=== PATIENT | female | born 1965 | race Caucasian/White ===

== ENCOUNTER → 2020-01-04 10:19 | Outpatient (BNVA) | payer MEDICARE, SELFPAY | PROVIDERS: PCP Family Medicine; Visit Provider Internal Medicine Rheumatology | DX: M45.9 Ankylosing spondylitis of unspecified sites in spine (principal); M19.90 Unspecified osteoarthritis, unspecified site; M54.31 Sciatica, right side; Z79.899 Other long term (current) drug therapy; F17.210 Nicotine dependence, cigarettes, uncomplicated | CPT/HCPCS: 99204 ==

== ENCOUNTER → 2020-01-26 11:50 | Outpatient (BNVA) | payer MEDICARE, SELFPAY | PROVIDERS: PCP Family Medicine; Visit Provider Internal Medicine Rheumatology | DX: M45.9 Ankylosing spondylitis of unspecified sites in spine (principal); M19.90 Unspecified osteoarthritis, unspecified site; Z79.899 Other long term (current) drug therapy; M54.31 Sciatica, right side; Z15.89 Genetic susceptibility to other disease; F17.210 Nicotine dependence, cigarettes, uncomplicated | CPT/HCPCS: 36415; 80076; 82306; 82565; 85025; 85651; 86140; 99214 ==

== ENCOUNTER 2020-02-13 09:46 | Outpatient (RCR) | payer MEDICARE, SELFPAY | END 2020-02-13 23:59 | disposition home or self-care (01) | LOC: SPT 09:46 | PROVIDERS: PCP Family Medicine; Referring Provider Internal Medicine Rheumatology; Visit Provider Internal Medicine Rheumatology | DX: M45.9 Ankylosing spondylitis of unspecified sites in spine (principal); M19.90 Unspecified osteoarthritis, unspecified site | CPT/HCPCS: 97110; 97162 ==

== ENCOUNTER 2020-02-14 06:00 | Outpatient (RCR) | payer MEDICARE, SELFPAY | END 2020-03-14 23:59 | disposition home or self-care (01) | LOC: SPT 06:00 | PROVIDERS: PCP Family Medicine; Referring Provider Internal Medicine Rheumatology; Visit Provider Internal Medicine Rheumatology | DX: M54.9 Dorsalgia, unspecified (principal); M19.90 Unspecified osteoarthritis, unspecified site | CPT/HCPCS: 97110 ==

== ENCOUNTER 2020-03-15 06:00 | Outpatient (RCR) | payer MEDICARE, SELFPAY | END 2020-04-14 23:59 | disposition home or self-care (01) | LOC: SPT 06:00 | PROVIDERS: PCP Family Medicine; Referring Provider Internal Medicine Rheumatology; Visit Provider Internal Medicine Rheumatology | DX: M54.9 Dorsalgia, unspecified (principal); M19.90 Unspecified osteoarthritis, unspecified site | CPT/HCPCS: 97110 ==

== ENCOUNTER → 2020-11-14 08:44 | Outpatient (BNVA) | payer MEDICARE, MEDICAID, SELFPAY | PROVIDERS: PCP Family Medicine; Referring Provider Family Medicine; Visit Provider Urology | DX: R31.9 Hematuria, unspecified (principal); N39.0 Urinary tract infection, site not specified; R31.0 Gross hematuria; N28.89 Other specified disorders of kidney and ureter | CPT/HCPCS: 81003; 87086 ==

== ENCOUNTER 2020-12-04 08:14 | Outpatient (CLI) | payer MEDICARE, SELFPAY ==
[2020-12-04] MEDS: iohexol 300 mg/mL 100 mL Btl IV (08:56)
--- NOTE | 2020-12-04 09:30 | CT_ITS ---
WS: [id number] CT ABDOMEN AND PELVIS WITH AND WITHOUT CONTRAST HISTORY: RENAL MASS TECHNIQUE: Unenhanced 5 mm axial imaging first performed through the abdomen. Post contrast imaging t hrough the abdomen and pelvis. Oral contrast has not been provided. Sagittal and coronal reformats a re submitted. All CT scans at [facility] use at least one of these dose optimization tech niques: automated exposure control; mA and/or kV adjustment per patient size (includes targeted exams where dose is matched to clinical indication); or iterative reconstruction. CONTRAST: Omnipaque 300; 95 mL IV. DLP: 2488.93 mGy.cm COMPARISON: Renal ultrasound 10/09/2020 Lung bases are clear. Heart is normal size. Small hiatal hernia. Normal liver, gallbladder, spleen, pancreas, adrenal glands and aorta. RIGHT kidney: 9.3 cm in length. Low-attenuation nodule from the upper pole RIGHT kidney measures 10 m m. Hounsfield units are slightly elevated but there is no significant enhancement. This is probably a complex cyst. There is an additional tiny cyst which is too small to characterize versus an angiomyo lipoma in the posterior mid kidney. No obstruction. No solid mass. LEFT kidney: 9.5 cm in length. No solid mass or obstruction. 4 mm hypodensity in the mid kidney is to o small to characterize completely. No ascites or adenopathy. Mild constipation. Normal appendix. Well-distended urinary bladder. No intraluminal filling defect or mass. Uterus is anteverted. Small n odule exophytic from the fundus is likely a fibroid measuring 5.3 mm. Partial fusion of the SI joints. CT/CT abdomen pelvis wo/w [id number] IMPRESSION: 1. No solid mass or renal obstruction. 2. Nonenhancing low-attenuation 10 mm nodule upper pole RIGHT kidney. Probably representing a small complex cyst. 3. Normal appendix. 4. No acute abdominal or pelvic abnormalities.
== END 2020-12-04 08:15 | disposition home or self-care (01) ==
LOC: RAD 08:18
PROVIDERS: PCP Family Medicine; Visit Provider Urology
DX: N28.89 Other specified disorders of kidney and ureter (principal); R31.0 Gross hematuria
CPT/HCPCS: 74178; 81003; 88112

== ENCOUNTER → 2020-12-31 15:10 | Outpatient (BNVA) | payer MEDICARE, SELFPAY | PROVIDERS: PCP Family Medicine; Visit Provider Obstetrics & Gynecology | DX: Z12.4 Encounter for screening for malignant neoplasm of cervix (principal); N95.1 Menopausal and female climacteric states | CPT/HCPCS: 88175 ==

== ENCOUNTER → 2021-02-20 16:38 | Outpatient (BNVA) | payer MEDICARE, SELFPAY | PROVIDERS: PCP Family Medicine; Referring Provider Family Medicine; Visit Provider Podiatrist Foot & Ankle Surgery | DX: M79.671 Pain in right foot (principal); M79.672 Pain in left foot; M21.612 Bunion of left foot; M21.611 Bunion of right foot; M19.072 Primary osteoarthritis, left ankle and foot; M19.071 Primary osteoarthritis, right ankle and foot | CPT/HCPCS: 73630 ==

== ENCOUNTER → 2021-03-25 13:53 | Outpatient (BNVA) | payer MEDICARE, SELFPAY | PROVIDERS: PCP Family Medicine; Visit Provider Internal Medicine Rheumatology | DX: M45.9 Ankylosing spondylitis of unspecified sites in spine (principal); Z79.899 Other long term (current) drug therapy; M54.31 Sciatica, right side; Z15.89 Genetic susceptibility to other disease; Z71.89 Other specified counseling | CPT/HCPCS: 99214 ==

== ENCOUNTER → 2022-09-01 09:52 | Outpatient (BNVA) | payer MEDICARE, SELFPAY | PROVIDERS: PCP Family Medicine; Visit Provider Family Medicine | DX: N28.1 Cyst of kidney, acquired (principal); M45.9 Ankylosing spondylitis of unspecified sites in spine; Z79.899 Other long term (current) drug therapy; K58.9 Irritable bowel syndrome, unspecified | CPT/HCPCS: 80053; 80061; 81000; 82306; 84439; 84443; 85025 ==

== ENCOUNTER 2022-09-29 16:31 | Outpatient (CLI) | payer MEDICARE, SELFPAY ==
--- NOTE | 2022-09-29 16:45 | US_ITS ---
WS: [id number] RENAL ULTRASOUND HISTORY: complex renal cyst COMPARISON: Renal ultrasound 10/09/[address] 12/04/2020 TECHNIQUE: 2-D and color Doppler imaging of the kidney submitted. Right kidney: 9.7 cm x 5.1 cm x 4.0 cm. Cortex: 1.0 cm Normal size kidney. Small cyst from the medial RIGHT kidney measures 1.3 x 1.5 x 1.0 cm. No additiona l cysts and no solid mass. No obstruction. Left kidney: 9.7 cm x 5.8 cm x 4.5 cm. Cortex: 1.1 cm Normal size and echogenicity. The tiny hypodensity seen on recent CT from 2020 is not identified by u ltrasound. Aorta: Mild atherosclerosis. Urinary Bladder: Normal distention. US/US renal BI* [id number] IMPRESSION: 1. No solid renal mass or hydronephrosis. 2. Medial RIGHT renal cyst with a maximum diameter of 1.5 cm. Slightly increas ed in size from the CT of 12/05/2019. 3. No cyst or solid mass identified LEFT kidney.
== END 2022-09-29 16:32 | disposition home or self-care (01) ==
PROVIDERS: PCP Family Medicine; Visit Provider Family Medicine
DX: N28.1 Cyst of kidney, acquired (principal)
CPT/HCPCS: 76770

== ENCOUNTER → 2024-09-22 11:22 | Outpatient (BNVA) | payer MEDICARE, SELFPAY | PROVIDERS: PCP Family Medicine; Visit Provider Podiatrist Foot & Ankle Surgery | DX: L84 Corns and callosities (principal); M20.41 Other hammer toe(s) (acquired), right foot; M20.42 Other hammer toe(s) (acquired), left foot; M45.9 Ankylosing spondylitis of unspecified sites in spine; Z15.89 Genetic susceptibility to other disease | CPT/HCPCS: 99203 ==